=== PATIENT | male | born 1985 | race Caucasian/White ===

== ENCOUNTER 2019-05-29 18:07 | Emergency (ER) | payer OTHER ==
[~2019-05-29] VITALS: Ht 167.6 cm; Wt 88.6 kg
[2019-05-29] MEDS ORDERED: antacid (18:14)
[2019-05-29] MEDS ORDERED: GI COCKTAIL 50ML BTL(HYOSCYAMINE/MAALOX/LIDOCAINE VISCOUS)(1:3:1) PO ONE (20:45)
[2019-05-29] MEDS ORDERED: ACETAMINOPHEN 325 MG TAB PO ONE (20:45)
[2019-05-29] MEDS ORDERED: METOCLOPRAMIDE 10 MG TAB PO ONE (20:45)
--- NOTE | 2019-05-29 21:00 | REPVR ---
PROCEDURE INFORMATION: Exam: CT Head Without Contrast Exam date and time: 05/29/2019 8:48 PM Age: 33 years old Clinical indication: Pain; Headache; Additional info: VELÁZQUEZ, elev BP TECHNIQUE: Imaging protocol: Computed tomography of the head without contrast. Radiation optimization: All CT scans at this facility use at least one of these dose optimization techniques: automated exposure control; mA and/or kV adjustment per patient size (includes targeted exams where dose is matched to clinical indication); or iterative reconstruction. COMPARISON: No relevant prior studies available. FINDINGS: Brain: Fluid density in the anterior aspect of the right middle cranial fossa consistent within arachnoid cyst. Otherwise unremarkable. Ventricles: Normal. No ventriculomegaly. Bones/joints: Unremarkable. No acute fracture. Sinuses: Visualized sinuses are unremarkable. No fluid levels. Mastoid air cells: Visualized mastoid air cells are well aerated. Soft tissues: Unremarkable. IMPRESSION: 1. Fluid density in the anterior aspect of the right middle cranial fossa consistent within arachnoid cyst. 2. No acute findings. Electronically signed by: David Castaneda On 05/29/2019 21:00:01 PM
[2019-05-29 21:13] LABS: BASO % 0.3 % (0.0-1.0); EOS # 0.2 10^3/uL (0.0-0.5); EOS % 2.1 % (0.0-3.0); HEMATOCRIT 43.6 % (42.0-52.0); HEMOGLOBIN 15.2 g/dl (13.5-17.5); LYMPH # 2.8 10^3/uL (1.5-5.0); LYMPH % 35.8 % (24.0-44.0); MEAN CORPUSCULAR HEMOGLOBIN 31.1 pg (27.0-33.0); MEAN CORPUSCULAR HGB CONC 34.9 g/dl (32.0-36.5); MEAN CORPUSCULAR VOLUME 89.2 fl (80.0-96.0); MONO # 0.8 10^3/uL (0.0-0.8); MONO % 9.7 % (0.0-5.0); NEUTROPHILS # 4.1 10^3/uL (1.5-8.5); NEUTROPHILS % 51.8 % (36.0-66.0); PLATELET COUNT, AUTOMATED 261 10^3/uL (150-450); RED BLOOD COUNT 4.89 10^6/uL (4.30-6.10); WHITE BLOOD COUNT 7.9 10^3/uL (4.0-10.0)
[2019-05-29 21:20] LABS: APPEARANCE, URINE CLOUDY (CLEAR); BACTERIA, URINE AUTO NEGATIVE (NEGATIVE); BILIRUBIN, URINE AUTO NEGATIVE (NEGATIVE); BLOOD, URINE BLOOD NEGATIVE (NEGATIVE); COLOR, URINE YELLOW (YELLOW); GLUCOSE, URINE (UA) AUTO NEGATIVE (NEGATIVE); KETONE, URINE AUTO NEGATIVE (NEGATIVE); LEUKOCYTE ESTERASE, URINE AUTO NEGATIVE (NEGATIVE); NITRITE, URINE AUTO NEGATIVE (NEGATIVE); PROTEIN, URINE AUTO NEGATIVE (NEGATIVE); RBC, URINE AUTO 2 /HPF (0-3); SPECIFIC GRAVITY URINE AUTO 1.011 (1.002-1.035); SQUAMOUS EPITHELIAL CELL UR AU 0 /HPF (0-6); UROBILINOGEN, URINE AUTO 0.2 mg/dL (0.0-2.0); WBC, URINE AUTO 0 /HPF (0-3)
[2019-05-29 21:39] LABS: ALBUMIN 4.5 GM/DL (3.2-5.2); ALT/SGPT 105 U/L (12-78); BILIRUBIN,DIRECT 0.1 MG/DL (0.0-0.2); BILIRUBIN,TOTAL 0.3 MG/DL (0.2-1.0); CK-MB VALUE MASS < 1.0 NG/ML (<3.6); CPK CREATINE PHOSPHOKINASE 242 U/L (39-308); LIPASE 117 U/L (73-393); MB/CK RELATIVE INDEX 0.41 (< OR =4); TOTAL PROTEIN 8.1 GM/DL (6.4-8.2); TROPONIN I < 0.02 NG/ML (< 0.10)
[2019-05-29 21:55] VITALS: BP 136/79
[2019-05-29] MEDS ORDERED: OMEP-218 PO (22:12)
--- NOTE | 2019-05-30 09:06 | REP ---
Chest x-ray: Two views. History: Heartburn x2 days . Comparison study: No comparison study . Findings: The lungs are well inflated and free of infiltrate. The pleural angles are sharp. The heart size is normal. Pulmonary vasculature is not increased. No significant bony abnormality is seen. Impression: Negative chest x-ray. Electronically Signed by Timothy Rutledge MD 05/30/2019 08:58 A
--- NOTE | 2019-05-31 06:35 | ECGEPIP ---
[facility] - ED Test Date: 2019-05-29 Pat Name: NIURKA RIVAS Department: Room: - Gender: Male [employer] Specialist: [facility] : 1985 Requested By: oSnido Lao Order Number: [id number] Reading MD: Thad Frey Measurements Intervals [place] Rate: 77 P: 55 IN: 152 QRS: 51 QRSD: 97 T: 22 QT: 361 QTc: 409 Interpretive Statements SINUS RHYTHM NONSPECIFIC T WAVE ABNORMALITIES NO PRIORS FOR COMPARISON Electronically Signed on 05-31-2019 6:35:21 EST by Thad Frey
== END 2019-05-29 22:22 | disposition home or self-care (01) ==
LOC: M ED 18:07
DX: K21.9 Gastro-esophageal reflux disease without esophagitis (principal); G93.0 Cerebral cysts; R03.0 Elevated blood-pressure reading, without diagnosis of hypertension; R25.2 Cramp and spasm